=== PATIENT | female | born 1990 | race Caucasian/White ===

== ENCOUNTER 2016-06-09 09:42 | Emergency (ER) | payer OTHER ==
[~2016-06-09] VITALS: Ht 167.6 cm; Wt 57.4 kg
[~2016-06-09 09:42] MED LIST: AMOXICILLIN500 MG PO; VENTOLIN HFA18 GM IH; ZOFRAN ODT4 MG PO; no home meds
[2016-06-09] MEDS ORDERED: ZOLOFT50 MG PO (10:47)
[2016-06-09] MEDS ORDERED: PRENATAL TABLE1 EACH PO (10:47)
[2016-06-09 11:31] LABS: INFLUENZA A VIRAL ANTIGEN NEGATIVE; INFLUENZA B VIRAL ANTIGEN NEGATIVE
[2016-06-09 11:46] VITALS: BP 111/72
== END 2016-06-09 11:50 | disposition home or self-care (01) ==
LOC: EME 09:42
PROVIDERS: Nurse Practitioner Family
DX: J06.9 Acute upper respiratory infection, unspecified (principal)
CPT/HCPCS: 71020; 87502; 99281; 99283